=== PATIENT | female | born 1975 | race Caucasian/White ===

== ENCOUNTER 2020-01-14 08:41 | Emergency (ER) | payer SELFPAY ==
--- NOTE | 2020-01-14 09:04 | EDPHYS ---
Physician Documentation [facility] Name: Tatyana Vang Age: 44 yrs Sex: Female : 1975 Arrival Date: 01/14/2020 Time: 08:45 Bed 18 Private MD: ED Physician Ramon Haley HPI: 01/13 08:58 This 44 yrs old Female presents to ER via Unassigned with complaints of Rash, rn Itching. 08:58 The patient's rash thought to be caused by an unknown cause. The rash is located on the rn body diffusely. The rash can be described as erythematous, urticarial. Onset: The symptoms/episode began/occurred yesterday. Severity of symptoms: At their worst the symptoms were mild in the emergency department the symptoms are unchanged. The patient has experienced similar episodes in the past. Reports has had allergic reactions without known etiology in past, gets better with steroids, just go into rehab, told to change into scrubs that they had, unsure if maybe detergent caused it, but + rash/hives, no difficulty breathing or chest pain. no oral swelling. . Historical: - Allergies: 09:05 No Known Allergies; iw - Home Meds: 09:05 None [Active]; iw - PMHx: 09:05 None; iw - PSHx: 09:05 D \T\ C; iw - Immunization history:: Adult Immunizations up to date. - Social history:: Smoking status: Patient reports the use of cigarette tobacco products. - Family history:: not pertinent. - Hospitalizations: : No recent hospitalization is reported. ROS: 08:58 Constitutional: Negative for fever, chills, and weight loss, Eyes: Negative for injury, rn pain, redness, and discharge, Cardiovascular: Negative for chest pain, palpitations, and edema, Respiratory: Negative for shortness of breath, cough, wheezing, and pleuritic chest pain, Abdomen/GI: Negative for abdominal pain, nausea, vomiting, diarrhea, and constipation, MS/Extremity: Negative for injury and deformity, Skin: + rash and itching Neuro: Negative for headache, weakness, numbness, tingling, and seizure. Exam: 08:58 Constitutional: This is a well developed, well nourished patient who is awake, alert, rn and in no acute distress. Head/Face: Normocephalic, atraumatic. ENT: No stridor Respiratory: Speaking full sentences. Skin: Warm, dry, + diffuse urticarial lesions with some mild excoriations, no bullae, no skin sloughing. No signs of bites Vital Signs: 09:02 BP 134 / 95; Pulse 85; Resp 16; Temp 97.8; Pulse Ox 100% on R/A; Weight 81.65 kg; iw Height 5 ft. 6 in. (167.64 cm); 09:16 BP 121 / 78; Pulse 71; Resp 16; Temp 98; Pulse Ox 97% ; bp 09:02 Body Mass Index 29.05 (81.65 kg, 167.64 cm) iw MDM: 08:53 Patient medically screened. rn 09:03 Differential diagnosis: allergic reaction. Differential diagnosis: insect bites, rn idiopathic urticaria. Data reviewed: vital signs, nurses notes. Counseling: I had a detailed discussion with the patient and/or guardian regarding: the historical points, exam findings, and any diagnostic results supporting the discharge/admit diagnosis, the need for outpatient follow up, to return to the emergency department if symptoms worsen or persist or if there are any questions or concerns that arise at home. Special discussion: I discussed with the patient/guardian in detail that at this point there is no indication for admission to the hospital. It is understood, however, that if the symptoms persist or worsen the patient needs to return immediately for re-evaluation. Administered Medications: 09:13 Drug: SOLU-Medrol 125 mg Route: IM; Site: right gluteus; bp 09:18 Follow up: Response: Marked relief of symptoms bp 09:13 Drug: Atarax 50 mg Route: PO; bp 09:18 Follow up: Response: Marked relief of symptoms bp Disposition: 01/14/20 09:03 Discharged to Home. Impression: Urticaria, unspecified. - Condition is Stable. - Discharge Instructions: Hives. - Prescriptions for Hydroxyzine HCl 50 mg Oral Tablet - take 1 tablet by ORAL route every 8 hours As needed; 20 tablet. Prednisone 20 mg Oral Tablet - take 3 tablet by ORAL route once daily for 5 days; 15 tablet. - Medication Reconciliation Form, Thank You Letter, Antibiotic Education, Prescription Opioid Use form. - Follow up: Private Physician; When: As needed; Reason: Recheck today's complaints, Re-evaluation by your physician. - Problem is new. - Symptoms are unchanged. Signatures: Raquel Villareal RN RN iw Nieto, Roman, MD MD rn Peltier, Brian, RN RN bp Corrections: (The following items were deleted from the chart) 09:34 09:03 01/14/2020 09:03 Discharged to Home. Impression: Urticaria, unspecified. bp Condition is Stable. Forms are Medication Reconciliation Form, Thank You Letter, Antibiotic Education, Prescription Opioid Use. Follow up: Private Physician; When: As needed; Reason: Recheck today's complaints, Re-evaluation by your physician. Problem is new. Symptoms are unchanged. rn
--- NOTE | 2020-01-14 09:04 | ER ---
Nurse's Notes [facility] Name: Tatyana Vang Age: 44 yrs Sex: Female : 1975 Arrival Date: 01/14/2020 Time: 08:45 Bed 18 Private MD: Diagnosis: Urticaria, unspecified Presentation: 01/13 09:02 Chief complaint: Patient states: rash to left ankle, left leg since yesterday, started iw rehab at [facility] yesterday but does not know what triggered it. Coronavirus screen: Proceed with normal triage. Patient denies a cough. Patient denies shortness of breath or difficulty breathing. Patient denies measured and/or subjective temperature greater than 100.4F prior to today's visit. Patient denies travel on a cruise ship or to a country the [facility] currently lists as an affected area. Patient denies contact with known and/or suspected case of COVID-19. Ebola Screen: Patient negative for fever greater than or equal to 101.5 degrees Fahrenheit, and additional compatible Ebola Virus Disease symptoms Patient denies exposure to infectious person. Patient denies travel to an Ebola-affected area in the 21 days before illness onset. No symptoms or risks identified at this time. Onset: The symptoms/episode began/occurred yesterday. Anaphylaxis evaluation, the patient reports or I have noted the following symptoms which indicate a significant risk of anaphylaxis:. Initial Sepsis Screen: Does the patient meet any 2 criteria? No. Patient's initial sepsis screen is negative. Does the patient have a suspected source of infection? No. Patient's initial sepsis screen is negative. Risk Assessment: Do you want to hurt yourself or someone else? Patient reports no desire to harm self or others. Onset of symptoms was January 13, 2020. 09:02 Method Of Arrival: Ambulatory iw 09:02 Acuity: ANALISA 4 iw Triage Assessment: 08:59 General: Appears in no apparent distress. uncomfortable, Behavior is cooperative, bp appropriate for age, anxious. Pain: Denies pain. EENT: No deficits noted. Neuro: No deficits noted. Cardiovascular: No deficits noted. Respiratory: No deficits noted. GI: No signs and/or symptoms were reported involving the gastrointestinal system. : No signs and/or symptoms were reported regarding the genitourinary system. Derm: Reports itching. Musculoskeletal: No deficits noted. Historical: - Allergies: 09:05 No Known Allergies; iw - Home Meds: 09:05 None [Active]; iw - PMHx: 09:05 None; iw - PSHx: 09:05 D \T\ C; iw - Immunization history:: Adult Immunizations up to date. - Social history:: Smoking status: Patient reports the use of cigarette tobacco products. - Family history:: not pertinent. - Hospitalizations: : No recent hospitalization is reported. Screenin:00 Abuse screen: Denies threats or abuse. Denies injuries from another. Nutritional bp screening: No deficits noted. Tuberculosis screening: No symptoms or risk factors identified. Fall Risk None identified. Assessment: 09:00 General: SEE TRIAGE NOTE. Respiratory: Airway is patent Respiratory effort is even, bp unlabored, Breath sounds are clear bilaterally. 09:17 Reassessment: PT D/C TO [facility], DX WITH URTICARIA. Respiratory: bp Airway is patent Respiratory effort is even, unlabored. Vital Signs: 09:02 BP 134 / 95; Pulse 85; Resp 16; Temp 97.8; Pulse Ox 100% on R/A; Weight 81.65 kg; iw Height 5 ft. 6 in. (167.64 cm); 09:16 BP 121 / 78; Pulse 71; Resp 16; Temp 98; Pulse Ox 97% ; bp 09:02 Body Mass Index 29.05 (81.65 kg, 167.64 cm) ED Course: 08:45 Patient arrived in ED. ag5 08:53 Ramon Haley MD is Attending Physician. rn 08:54 Cesar Calle, RN is Primary Nurse. bp 09:00 Arm band placed on. bp 09:00 Patient has correct armband on for positive identification. Bed in low position. Call bp light in reach. Side rails up X2. 09:05 Triage completed. iw 09:16 Cesar Calle, RN is Primary Nurse. bp 09:17 No provider procedures requiring assistance completed. Patient did not have IV access bp during this emergency room visit. Administered Medications: 09:13 Drug: SOLU-Medrol 125 mg Route: IM; Site: right gluteus; bp 09:18 Follow up: Response: Marked relief of symptoms bp 09:13 Drug: Atarax 50 mg Route: PO; bp 09:18 Follow up: Response: Marked relief of symptoms bp Outcome: 09:03 Discharge ordered by . rn 09:17 Discharged to home ambulatory. bp 09:17 Condition: stable 09:17 Discharge instructions given to patient, Instructed on discharge instructions, follow up and referral plans. medication usage, Demonstrated understanding of instructions, follow-up care, medications, Prescriptions given X 2. 09:34 Patient left the ED. bp Signatures: Raquel Villareal RN RN iw Nieto, Roman, MD MD rn Peltier, Brian, RN RN bp Gaskin, Ajare ag5
[2020-01-14] MEDS ORDERED: METHYLPREDNISOLONE 125 MG INJ ONE (09:17)
[2020-01-14] MEDS ORDERED: hydrOXYzine HCL 25 MG TAB ONE (09:17)
[2020-01-14 09:59] VITALS: BP 121/78; TEMP 98; O2SAT 97
== END 2020-01-14 09:34 | disposition home or self-care (01) ==
LOC: ER 08:41
DX: L50.9 Urticaria, unspecified (principal); F17.210 Nicotine dependence, cigarettes, uncomplicated
CPT/HCPCS: 96372; 99283; J2930